=== PATIENT | female | born 1960 | race Caucasian/White ===

== ENCOUNTER 2017-09-21 12:00 | Inpatient (IN) | payer BC, OTHER ==
[2017-09-21 12:23] VITALS: BMI 33.3
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
[2017-09-25] MEDS ORDERED: Levofloxacin 500 mg/D5W 100 ml Premix Bag ONE (07:50)
[2017-09-25] MEDS ORDERED: Clindamycin/D5W 900 mg/50 ml Premix Bag ONE (07:50)
[2017-09-25] MEDS ORDERED: Midazolam HCl 2 mg/2 ml Vial ONE (08:37)
[2017-09-25] MEDS ORDERED: Sodium Chloride 0.9% 30 ML ONE (09:22)
[2017-09-25] MEDS ORDERED: Lidocaine 1% w/Epinephrine 1:200K 30 ML VIAL ONE ×2 (09:22→09:23)
[2017-09-25] MEDS ORDERED: Bacitracin Zinc Ointment 30 gm TUBE ONE (09:22)
[2017-09-25] MEDS ORDERED: Thrombin 5000 UNITS/5 ML VIAL ONE (09:22)
[2017-09-25] MEDS ORDERED: Fentanyl 250 MCG/5 ML VIAL ONE (09:54)
[2017-09-25] MEDS ORDERED: Glycopyrrolate 0.2 MG/ML 5 ML SYRINGE ONE (10:00)
[2017-09-25] MEDS ORDERED: Ondansetron HCl/PF 4 MG/2 ML Vial ONE (10:00)
[2017-09-25] MEDS ORDERED: Ketorolac Tromethamine 30 MG/ML VIAL ONE (10:00)
[2017-09-25] MEDS ORDERED: Propofol 200 MG/20 ML VIAL ONE (10:00)
[2017-09-25] MEDS ORDERED: Lidocaine 1% PF 5 ML VIAL ONE (10:00)
[2017-09-25] MEDS ORDERED: PHENYLEPHRINE-NS 100 MCG/ML 10 ML SYRINGE ONE (10:00)
[2017-09-25] MEDS ORDERED: Dexamethasone 20 MG/5 ML VIAL ONE (10:00)
[2017-09-25] MEDS ORDERED: Ondansetron HCl/PF 4 MG/2 ML Vial IVP PRN (11:37)
[2017-09-25] MEDS ORDERED: MORPHINE 10 MG/ML SYRINGE IV PRN (11:37)
[2017-09-25] MEDS ORDERED: Acetaminophen/Codeine 30-300mg Tablet PO PRN ×2 (11:37)
[2017-09-25] MEDS ORDERED: Bisacodyl 10 MG SUPP PR PRN (11:37)
[2017-09-25] MEDS ORDERED: Cyclobenzaprine 10 MG TAB PO PRN (11:37)
[2017-09-25] MEDS ORDERED: Morphine PF 1 MG/ML SYR IVP PRN (11:37)
[2017-09-25] MEDS ORDERED: Fentanyl 100 MCG/2 ML VIAL ONE (11:48)
--- NOTE | 2017-09-25 12:48 | OP ---
DATE OF PROCEDURE: 09/25/2017 SURGEON: Arpan Escobar M.D. CAMPUS INTERVIEWS INTERN: Phoenix Pérez PA-C. PREOPERATIVE INDICATION: Make diagnosis. PREOPERATIVE DIAGNOSES: History of 2 separate cancers, presence of a right temporal bone lesion, po ssible tumor. 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 OPERATIVE PROCEDURE: BrainLAB stereotactic assisted right temporal craniectomy, removal of skull le lilly and cranioplasty (less than 5 cm). PREOPERATIVE MEDICATION: Clindamycin 900 mg IV, Levaquin 500 mg IV. DRAIN NUMBER: Zero. DRAIN TYPE: None. OPERATIVE DICTATION: The patient was brought to the operating room. General endotracheal anesthesi a was induced. The patient was positioned on the operating table in the supine position and right s houlder was bumped. The head was turned to the left and immobilized in Drummond pin headholder. Us ing the [employer] navigation system and preoperative BrainLAB protocol CT scan, we registered the pat ient's head and created 3 dimensional stereotactic space. Using our surface registration technique, the registration was performed. We verified registration with surface landmarks and found accuracy to be quite good. We used the [employer] system to localize the lesion within the temporal bone. Th is was just in line with the external auditory canal and slightly anterior to it. We planned a curv ilinear incision over the ear and under our planned incision, we infused local anesthetic. Hair was removed with electric clippers. The scalp was sterilely prepped and draped. We opened our incisio n with a 10 blade knife and controlled bleeding with bipolar cautery. We dissected sharply to the t emporalis fascia. We cut the fascia and dissected our way down to the periosteum. A fishhook was p laced in the temporalis muscle. We brought the [employer] navigation wand into the field then we bala ed out the lesion within the bone. We marked this off and placed a bur hole outside the lesion in t he temporal bone. Using a side cutting bit and foot plate, we cut anterior and superior to the lesi on. Inferiorly, the lesion extended to the floor of the middle fossa and over the mastoid air cells . We used a high-speed drill to drill out and thin the bone inferior and posterior to the lesion. Eventually, the bone was thin enough that it folded out of the skull and we inspected it. On the ve ntral surface, we could see some of the lesion that remodeled bone and there was presence of some ye llow soft tissue within the diploic space. We made sure there was no abnormal bone or abnormal tiss ue outside our craniectomy and indeed there was not. We irrigated copiously with bacitracin irrigat ion. We waxed the bone edges and mastoid air cells that were uncovered. The dura was still intact. We left Surgicel over the dura and brought in methylmethacrylate bone cement. We mixed the bone c ement and when it was the appropriate hardness we placed in our craniectomy defect. We molded it to fit the shape of the removed bone and once it hardened, we closed our incision in anatomic layers. We applied a sterile dressing. The patient was removed from the Drummond josh headholder and tra nsferred back to the transport cart. This was a clean case and no contamination.
[2017-09-25] MEDS ORDERED: traMADol HCl 50 MG TAB PO PRN (14:37)
[2017-09-25] MEDS: metFORMIN 500 MG TAB PO SCH (18:42)
[2017-09-25] MEDS: Sodium Chloride 0.9% 1,000 ML IV SCH (18:43)
[2017-09-25] MEDS: PROVENTIL INHALER 6.7 G (200 INHALATIONS) INH SCH (19:46)
[2017-09-25] MEDS: Mometasone/Formoterol 120 PUFF INHALER INH SCH (19:47)
[2017-09-25] MEDS: Vancomycin HCl 1 GM in Premix Bag 1 BAG IVPB SCH (21:44)
[2017-09-25] MEDS ORDERED: Docusate 100 MG CAP PO SCH (23:45)
[2017-09-26] MEDS: traMADol HCl 50 MG TAB PO PRN ×2 (00:33→06:59)
[2017-09-26] MEDS: Sodium Chloride 0.9% 1,000 ML IV SCH (02:58)
[2017-09-26] MEDS: PROVENTIL INHALER 6.7 G (200 INHALATIONS) INH SCH (06:40)
[2017-09-26] MEDS: Mometasone/Formoterol 120 PUFF INHALER INH SCH (06:41)
[2017-09-26] MEDS: metFORMIN 500 MG TAB PO SCH (06:59)
--- NOTE | 2017-09-26 08:11 | PRG ---
DATE OF SERVICE: 09/26/2017 Ms. Traylor is 1 day out from removal of a skull lesion via a craniectomy and cranioplasty. Incision feels fine. She is neurologically intact. Ms. Traylor can go home. She will keep the bandage on h er incision at least until tomorrow night at which time showers are acceptable. She knows not to irvin bmerge the incision. We went over activity restrictions and wound care and followup arrangements. I will call her when pathology has completed their examination of the tissue.
[2017-09-26] MEDS: Vancomycin HCl 1 GM in Premix Bag 1 BAG IVPB SCH (08:38)
[2017-09-26 08:57] VITALS: BP 111/71; TEMP 98.5
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
== END 2017-09-26 11:40 | disposition home or self-care (01) | DRG 478 ==
LOC: SURG A 09-25 06:57 → SURG B 09-25 12:23
PROVIDERS: ADMIT Neurological Surgery; ATTEND Neurological Surgery
PROC: 0NB Head and Facial Bones, Excision (ICD-10-PCS; principal; 2017-09-25)
PROC: 0NU50JZ Supplement Right Temporal Bone with Synthetic Substitute, Open Approach (ICD-10-PCS; 2017-09-25)
DX: D16.4 Benign neoplasm of bones of skull and face (principal); M47.12 Other spondylosis with myelopathy, cervical region; Z85.3 Personal history of malignant neoplasm of breast; Z85.89 Personal history of malignant neoplasm of other organs and systems
CPT/HCPCS: 36416; 88307; 88311; 88341; 88342; 94664; A4216; C1713; J0131; J1100; J1885; J1956; J2001; J2250; J2405; J2704; J3010; J3370; J3490

== ENCOUNTER 2017-10-01 02:18 | Emergency (ER) | payer BC, OTHER ==
[2017-10-01] MEDS ORDERED: Ondansetron ODT 4 MG TAB ONE (02:48)
[2017-10-01] MEDS ORDERED: traMADol HCl 50 MG TAB ONE (02:54)
== END 2017-10-01 03:00 | disposition home or self-care (01) ==
LOC: ERS 02:18
DX: K59.00 Constipation, unspecified (principal); R11.0 Nausea; E11.9 Type 2 diabetes mellitus without complications; E03.9 Hypothyroidism, unspecified; J45.909 Unspecified asthma, uncomplicated
CPT/HCPCS: 99283; Q0162